=== PATIENT | male | born 1975 | race Caucasian/White ===

== ENCOUNTER 2018-06-20 12:19 | Emergency (ER) | payer OTHER ==
[2018-06-20] MEDS ORDERED: MAG HYDROX/AL HYDROX/SIMETH 30 ML, HYOSCYAMINE ELIXIR 10 ML, CIMETIDINE HCL 300 MG, LID... PO STA ×4 (14:04)
--- NOTE | 2018-06-20 14:54 | XR ---
EXAMINATION TYPE: XR soft tissue neck DATE OF EXAM: 06/20/2018 COMPARISON: None HISTORY: [place] seed or chip stuck in throat, difficulty swallowing TECHNIQUE: 2 view soft tissue neck FINDINGS: Prevertebral space is normal. The epiglottis is unremarkable. Subglottic airway is normal. No radiopaque foreign bodies are identified. IMPRESSION: 1. Normal soft tissue neck.
[2018-06-20 14:56] VITALS: BP 133/77; PULSE 60; RESP 17
--- NOTE | 2018-06-20 15:03 | ED ---
ENT HPI - General Chief complaint: ENT Stated complaint: poss foreign body in throat Time Seen by Provider: 06/20/18 13:39 Source: patient, RN notes reviewed, old records reviewed Mode of arrival: ambulatory Limitations: no limitations - History of Present Illness Initial comments: This is a 43 year old male with CC of foreign body sensation in throat after eating [place]. Patient reports he was able to eat and drink without difficulty. He denies fevers or chills. He states that he feels like there is a piece of chips still within his throat. No coughing. Denies any other complaints. - Related Data Home Medications Medication Instructions Recorded Confirmed No Known Home Medications 06/20/18 06/20/18 Allergies Allergy/AdvReac Type Severity Reaction Status Date / Time No Known Allergies Allergy Verified 06/20/18 13:48 Review of Systems ROS Statement: Those systems with pertinent positive or pertinent negative responses have been documented in the HPI. ROS Other: All systems not noted in ROS Statement are negative. Past Medical History Past Medical History: No Reported History History of Any Multi-Drug Resistant Organisms: None Reported Past Surgical History: Orthopedic Surgery Past Psychological History: No Psychological Hx Reported Smoking Status: Current every day smoker Past Alcohol Use History: None Reported Past Drug Use History: None Reported General Exam - General Exam Comments Initial Comments: This is a well appearing 43 year old male, no distress. Limitations: no limitations Head exam: Present: atraumatic, normocephalic, normal inspection Eye exam: Present: normal appearance, PERRL, EOMI. Absent: scleral icterus, conjunctival injection, periorbital swelling ENT exam: Present: normal exam, mucous membranes moist Neck exam: Present: normal inspection. Absent: tenderness, meningismus, lymphadenopathy Respiratory exam: Present: normal lung sounds bilaterally. Absent: respiratory distress, wheezes, rales, rhonchi, stridor Cardiovascular Exam: Present: regular rate, normal rhythm, normal heart sounds. Absent: systolic murmur, diastolic murmur, rubs, gallop, clicks GI/Abdominal exam: Present: soft, normal bowel sounds. Absent: distended, tenderness, guarding, rebound, rigid Neurological exam: Present: alert, oriented X3, CN II-XII intact Psychiatric exam: Present: normal affect, normal mood Skin exam: Present: warm, dry, intact, normal color. Absent: rash Course Vital Signs 06/20/18 06/20/18 06/20/18 12:43 14:55 15:09 Temperature 97.9 F 98.3 F Pulse Rate 82 60 Respiratory 20 17 17 Rate Blood Pressure 125/81 133/77 O2 Sat by Pulse 99 100 Oximetry Medical Decision Making - Medical Decision Making Do you have your old me out with sensation of food stuck with his throat. He's been able to drink fluids and eat food in emergency apartment without difficulty. Patient has no difficulty breathing, lungs are clear. No coughing. At this time I believe patient Most likely has irritation from the esophagus from that are scratching of the chip going down the throat a few days ago. I discussed that this will be globus hystericus. I discussed that he can follow up with GI doctor.Soft tissue neck xray is normal. - Radiology Data Radiology results: report reviewed Soft tissue neck xray is normal, no epiglottis. Disposition Clinical Impression: Globus hystericus, Dysphagia Disposition: HOME SELF-CARE Condition: Good Instructions: Cervical Strain (ED), Esophagitis (ED) Additional Instructions: Patient has follow-up with GI specialist. Return to emergency department if any alarming signs or symptoms occur. Is patient prescribed a controlled substance at d/c from ED?: No When asked, does pt state using other controlled substances?: No If prescribed controlled substance>3 days was MAPS reviewed?: No If opioid is for acute pain is fill amount 7 days or less?: No If Rx opioid, was Start Talking consent form obtained?: No Referrals: None,Stated [Primary Care Provider] - 1-2 days Susie Ramsey MD [STAFF PHYSICIAN] - 1-2 days Time of Disposition: 15:02
[2018-06-20 15:17] VITALS: TEMP 98.3
== END 2018-06-20 15:17 | disposition home or self-care (01) ==
LOC: EC 12:19
DX: F45.8 Other somatoform disorders (principal); F17.200 Nicotine dependence, unspecified, uncomplicated
CPT/HCPCS: 70360; 99284